=== PATIENT | female | born 2000 | race Caucasian/White ===

== ENCOUNTER 2025-02-20 08:00 | Outpatient (CLI) | payer BC, SELFPAY ==
[2025-02-22 16:29] LABS: HPV Source Cervix
[2025-02-25 18:00] LABS: Pap Test Digital Imaging Done
== END 2025-02-20 08:01 | disposition home or self-care (01) ==
PROVIDERS: PCP Internal Medicine; Visit Provider Nurse Practitioner Family
DX: Z11.51 Encounter for screening for human papillomavirus (HPV) (principal); Z12.4 Encounter for screening for malignant neoplasm of cervix; R03.0 Elevated blood-pressure reading, without diagnosis of hypertension; Z13.6 Encounter for screening for cardiovascular disorders
CPT/HCPCS: 80053; 80061; 87624; 87625; 88141; 88142; 88175